=== PATIENT | female | born 1940 | race Caucasian/White ===

== ENCOUNTER → 2016-11-11 | Outpatient (CLI) | payer OTHER ==
[~2016-11-11] VITALS: Ht 170.2 cm; Wt 63.5 kg
[~2016-11-11] MED LIST: ACETAMINOPHEN325 M1 PO; ADULT LOW DOSE81 MG PO; ASPIRIN325 PO; BIOTIN5000 MCG PO; CALCIUM +D & M1 EAC1 PO; CENTRUM SILVER1 EAC4 PO; COZAAR 25 MG TA25 M1 PO; EVISTA PO; FISH OIL 1,2001 EAC3 PO; FLECAINIDE ACET50 M2 PO; LANOXIN 0.250.25 M1 PO; MYRBETRIQ50 MG PO; NORVASC2.5 MG PO; PRADAXA150 MG PO; PROPRANOLOL PO; TYLENOL P.M. E1 EAC3 PO; TYLENOL PM EX-1 EACH PO; XALATAN2.5 ML OP
[2016-11-11 11:54] LABS: CREATININE 0.8 mg/dL (0.6-1.0)
[2016-11-11 15:02] VITALS: BP 172/82
[2016-11-11 16:03] LABS: HEMATOCRIT 29.5 % (37.0-47.0); MCH 32.6 pg (26.0-34.0); MCHC 33.9 g/dL (28.0-37.0); MCV 96.2 fL (80.0-100.0); RBC 3.07 mil/uL (4.20-5.00); RDW 13.9 % (10.5-14.5); WBC 14.4 thou/uL (4.0-11.0)
[2016-11-11 16:08] LABS: CALCIUM 8.9 mg/dL (8.5-10.1); CREATININE 0.7 mg/dL (0.6-1.0); POTASSIUM 3.8 mmol/L (3.5-5.1)
[2016-11-11 16:40] LABS: APTT 33.9 Seconds (24.5-32.8); INR 1.1; PROTIME 11.4 Seconds (9.3-11.4)
[2016-11-11 18:20] VITALS: BP 157/86
[2016-11-11 19:30] VITALS: BP 151/77
== END | disposition home or self-care (01) ==
LOC: ULTRA 11:08 → CAT 11:08
PROVIDERS: Family Medicine; Radiology Vascular & Interventional Radiology
DX: I26.99 Other pulmonary embolism without acute cor pulmonale (principal)

== ENCOUNTER 2017-05-12 09:12 | Inpatient (IN) | payer OTHER ==
[~2017-05-12] VITALS: Ht 170.2 cm; Wt 62.6 kg
--- NOTE | ~2017-05-12 | HC ---
[facility] [place] [address] CONSULTATION Name: FREDDY DAVALOS Room #: 208-P [facility] IN M.R.#: [id number] Admission: 05/12/17 Attend Phys: Reynold Singh MD Discharge: Date of : 38 Report #: [id number] THIS REPORT FOR: //name// CC: Reynold Singh MD DATE OF SERVICE: 05/12/2017 TYPE OF REPORT: Cardiology consultation. HISTORY OF THE PRESENT ILLNESS: The patient is a 76-year-old single white female who was last seen in the hospital today because of shortness of breath. The patient has a long history of paroxysmal atrial fibrillation. She apparently has never required cardioversion. Previous stress testing showed no evidence of coronary artery disease. She has been on flecainide and digoxin. She has been chronically anticoagulated. She has been followed by Dr. Vasques in [place], [place]. She apparently had a stress test last year that showed no significant coronary artery disease. She has never had a heart catheterization. Apparently 6 months ago, she underwent a left knee replacement. She tolerated this well and 2 weeks ago, underwent a right knee replacement at the surgery center in [place]. She was discharged home. She is now ambulating with a walker. Recently, she has not felt very well. She has felt fatigued. Yesterday, she felt more short of breath. She felt some pressure in her chest, although there is no radiation into her arms. She denied any significant palpitations or syncope. She has had no bleeding. Because of her shortness of breath, she finally was driven by private vehicle to the Emergency Room here today and admitted. PAST MEDICAL HISTORY: Otherwise significant for bilateral mastectomy for breast cancer. She has a history of hypertension. MEDICATIONS: Consists of Evista; Pradaxa; digoxin; flecainide; amlodipine, which she has not been taking recently because of low blood pressure and losartan, which she also was not taken because of low blood pressure. ALLERGIES: She has no known drug allergies. FAMILY HISTORY: Brother had coronary artery bypass surgery. SOCIAL HISTORY: She is , lives in [place], [place]. No smoking or alcohol use. Her daughter is actually a nurse practitioner at [employer] in [place]. REVIEW OF SYSTEMS: She has had no history of stroke or asthma. She has had a peptic ulcer in the past. No kidney disease. No liver disease. No psychiatric illness. No chronic skin condition. [facility] [address] [place] [address] CONSULTATION Name: FREDDY DAVALOS Room #: 208-P [facility]#: [id number] Admission: 05/12/17 Attend Phys: Reynold Singh MD Discharge: Date of : 39 Report #: [id number] PHYSICAL EXAMINATION: GENERAL: Revealed an elderly female, lying in bed. She appeared in no distress. VITAL SIGNS: She had a blood pressure of 140/80, pulse is 70. She was afebrile. HEENT: She was anicteric. Conjunctivae pink. Mucous members appear dry. NECK: Veins do not appear distended. No carotid bruits. CHEST: Clear to auscultation. CARDIOVASCULAR: Regular rate and rhythm. Grade 2 systolic ejection murmur. ABDOMEN: Soft. EXTREMITIES: Had no edema. Dorsalis pedis pulse 1+ bilaterally. SKIN: Cool and dry. NEUROLOGICAL: Nonfocal. RADIOLOGICAL DATA: There is no 12-lead ECG noted with her chart at this time. However, on the monitor in the CCU, she appears to be in a sinus rhythm. Her workup in the Emergency Room, she had portable chest x-ray that showed normal heart size, apical scarring, breast prosthesis noted, appears to be an IVC filter in place. CT scan of the chest using a PE protocol showed the following findings: No pulmonary embolus, tortuous aorta, aortic root is 4.1 cm, lungs are clear, cardiomegaly, no dissection, no lymph nodes, cysts in the liver and breast prosthesis. LABORATORY DATA: Previous lab work from today, sodium 139, creatinine 0.8 and glucose 120. Troponin 0.04. BNP 169. White blood cell count 9.7, hemoglobin 11.2 and hematocrit 33.2. IMPRESSION AND RECOMMENDATIONS: 1. Shortness of breath. Reason unclear. No evidence of pulmonary edema, pulmonary embolus, pneumonia or congestive heart failure. Possibly related to anemia. 2. Previous pulmonary embolus. The patient has an inferior vena cava filter in place. 3. History of atrial fibrillation. The patient in sinus rhythm. Currently, on flecainide. 4. History of hypertension. The patient recently was taken off of losartan and amlodipine because of low blood pressure. 5. Previous history of breast cancer. 6. Recent knee surgery. <ELECTRONICALLY SIGNED> By: Dalton Ceja MD, FACC 05/13/17 1758 1814 0000 Dalton Ceja MD, FAC /nt
--- NOTE | ~2017-05-12 | HC ---
[facility] [place] [address] CONSULTATION Name: FREDDY DAVALOS Room #: 208-P ADM IN M.R.#: [id number] Admission: 05/12/17 Attend Phys: Reynold Singh MD Discharge: Date of : 39 Report #: [id number] THIS REPORT FOR: //name// CC: Reynold Vasques MD REFERRING PHYSICIAN: Reynold Singh M.D. REASON FOR REFERRAL: Dyspnea. HISTORY OF PRESENT ILLNESS: The patient is a 76-year-old white female who presents to Emergency Room with recent onset of dyspnea. A pulmonary consultation was requested. Few weeks ago, she underwent surgery. She was doing fairly well until about 3 days prior to presentation. She did slightly develop dyspnea on exertion. She did note palpitations. She was seen by Dr. Vasques for atrial fibrillation. With worsening dyspnea, she presents to Emergency Room. CT chest angiogram performed showed no evidence of pulmonary embolus. No other abnormalities were noted. The patient has an apparent history of pulmonary embolus 6 months ago. A filter was said to have been placed. She has chronic atrial fibrillation, on Pradaxa. Otherwise, denies any recent febrile illness, chest pain, productive cough, nausea, vomiting or diarrhea. PAST MEDICAL HISTORY: Chronic atrial fibrillation, on chronic anticoagulation and she is followed by Dr. Vasques; hypertension, history of breast cancer, right, status post mastectomy and left total knee replacement within the past year. PAST SURGICAL HISTORY: As mentioned above. ALLERGIES: None to medications. HOME MEDICATIONS: Include Evista, Tylenol, Pradaxa, digoxin, flecainide, iron and Norvasc. FAMILY HISTORY: Noncontributory. SOCIAL HISTORY: The patient is a lifetime nonsmoker. Denies alcohol use. REVIEW OF SYSTEMS: As mentioned above, otherwise 10-point system review negative. [facility] [address] [place] [address] CONSULTATION Name: FREDDY DAVALOS Room #: 208-P [facility] IN [facility]#: [id number] Admission: 05/12/17 Attend Phys: Reynold Singh MD Discharge: Date of : 39 Report #: [id number] PHYSICAL EXAMINATION: GENERAL: She is awake, alert, in no apparent distress. VITAL SIGNS: Temperature 98 degrees Fahrenheit, pulse is 55, respiratory rate is 18, blood pressure is 146/80 mmHg and saturation 98%. HEENT: Normocephalic and atraumatic. NECK: Supple, without any lymphadenopathy or thyromegaly. CHEST: Breath sounds are clear without any rales or wheezes. CARDIOVASCULAR: Normal S1 and S2. There is no murmurs or gallop. There is no JVD. There is no carotid bruit. Pulses are 2+/4+ bilaterally. ABDOMEN: Soft and nontender. No organomegaly or masses felt. GENITOURINARY: Deferred. RECTAL: Deferred. EXTREMITIES: There is no cyanosis, clubbing or edema. LABORATORY DATA: CT chest angiogram as mentioned above showing no evidence of pulmonary embolus. No infiltrates seen. BNP is normal is 169. Troponin is normal. RADIOLOGICAL DATA: Chest x-ray was unremarkable. EKG shows ST-depression in the lateral leads. IMPRESSION: 1. Dyspnea in this 76-year-old white female. She had a recent knee surgery a few weeks ago. CT chest shows no evidence of pulmonary embolus nor any infiltrates. She is on anticoagulant. The cause of the dyspnea is unclear but perhaps may be related to dysrhythmias given history of atrial fibrillation. Pulmonary embolus has been ruled out. The patient does not have a history of chronic obstructive lung disease. 2. Recent knee surgery a few weeks ago. 3. Remote history of pulmonary embolus approximately 6 months ago, apparent inferior vena cava filter placement. 4. Permanent atrial fibrillation, on chronic anticoagulation. 5. Hypertension. RECOMMENDATION: We will await Cardiology evaluation regarding abnormal EKG and dyspnea. If cardiac workup is deemed to be nondiagnostic, the patient will benefit from outpatient followup including pulmonary function test. In the meantime, if she is stable from cardiac standpoint, we will do an ambulatory oximetry study. So far saturation appears to be adequate, [place] [address] CONSULTATION Name: FREDDY DAVALOS SHANNON Room #: 208-P ADM IN M.R.#: [id number] Admission: 05/12/17 Attend Phys: Reynold Singh MD Discharge: Date of : 39 Report #: [id number] Thank you for this consultation. <ELECTRONICALLY SIGNED> By: Liam Argueta MD 05/13/17 1615 1800 [id number] Liam Argueta MD /nt
--- NOTE | ~2017-05-12 | 2DMMODE ---
[facility] [address] [place] [address] 2 D/M-MODE ECHOCARDIOGRAM Name: FREDDY DAVALOS Room #: 208-P ADM IN M.R.#: [id number] Admission: 05/12/17 Attend Phys: Reynold Singh, Discharge: Date of : 38 Date of Service: 05/13/17 1221 Report #: [id number] THIS REPORT FOR: //name// APPROVED REPORT Study performed: 05/13/2017 09:47:01 EXAM: Comprehensive 2D, Doppler, and color-flow Echocardiogram Patient Location: Bedside Room #: 208 Status: routine BSA: 1.70 HR: 67 bpm BP: 154/82 mmHg Other Information Study Quality: Adequate Indications Atrial Fibrillation Dyspnea Hypertension/HDD 2D Dimensions RVDd: 27.61 mm LVEF(%): 58.50 (>50%) IVSd: 10.16 (7-11mm) LVOT Diam: 21.77 (18-24mm) LVDd: 40.51 mm PWd: 10.31 (7-11mm) Ascending Ao: 34.42 (22-36mm) LVDs: 28.14 (25-40mm) Aortic Root: 36.81 mm IVC: 16.00 mm Parkinson's LVEF: 58.50 % Volumes Left Atrial Volume (Systole) Single Plane 4CH: 80.48 mL Single Plane 2CH: 57.59 mL LA ESV Index: 44.00 mL/m2 Aortic Valve AoV Peak Amrit.: 1.48 m/s AO Peak Gr.: 8.77 mmHg LVOT Max P.98 mmHg LVOT Max V: 1.12 m/s RANDI Vmax: 2.80 cm2 Mitral Valve E/A Ratio: 0.[address] [facility] [place] [address] [place] [address] 2 D/M-MODE ECHOCARDIOGRAM Name: FREDDY DAVALOS Room #: 208-P [facility] IN M.R.#: [id number] Admission: 05/12/17 Attend Phys: Reynold Singh, Discharge: Date of : 38 Date of Service: 05/13/17 1221 Report #: [id number] MVA Planimetry: 1842.23 mm2 MV Decel. Time: 351.67 ms MV E Max Amrit.: 0.96 m/s MV A Amrit.: 1.02 m/s MV PHT: 101.99 ms IVRT: 161.48 ms Pulmonary Valve PV Peak Amrit.: 1.10 m/s PV Peak Gr.: 4.88 mmHg Pulmonary Vein P Vein S: 0.59 m/s P Vein A: 0.25 m/s P Vein D: 0.44 m/s P Vein A Dur.: 110.7 msec P Vein S/D Ratio: 1.34 Tricuspid Valve TR Peak Amrit.: 2.66 m/s TR Peak Gr.: 28.20 mmHg PA Pressure: 33.00 mmHg Left Ventricle The left ventricle is normal size. There is normal left ventricular wall thickness. The left ventricular systolic function is normal. The left ventricular ejection fraction is within the normal range. LVEF is 55-60%. Grade I - abnormal relaxation pattern. Right Ventricle The right ventricle is normal size. The right ventricular systolic function is normal. Atria Left atrium is moderately dilated. Right atrium is mildly dilated. Aortic Valve Aortic valve is calcified. Trace aortic regurgitation. There is no aortic valvular stenosis. Mitral Valve The mitral valve is normal in structure. There is mitral annular calcification. Trace mitral regurgitation. No evidence of mitral valve stenosis. Tricuspid Valve The tricuspid valve is normal in structure. There is trace tricuspid regurgitation. Estimated PAP 33 mmHg. [facility] [address] [place] [address] 2 D/M-MODE ECHOCARDIOGRAM Name: FREDDY DAVALOS Room #: 208-P [facility] IN ..#: [id number] Admission: 05/12/17 Attend Phys: Reynold Singh, Discharge: Date of : 38 Date of Service: 05/13/17 1221 Report #: [id number] Pulmonic Valve Pulmonic valve is not well visualized. There is no pulmonic valvular regurgitation. Great Vessels The aortic root is normal in size. IVC is normal in size and collapses >50% with inspiration. Pericardium There is no pericardial effusion. <Conclusion> LVEF is 55-60%. Left atrium is moderately dilated. Right atrium is mildly dilated. Aortic valve is calcified. <ELECTRONICALLY SIGNED> By: Dalton Ceja MD, FACC 05/13/17 1221 1221 1221 Dalton Ceja MD, FACC /INF
--- NOTE | ~2017-05-12 | EKG ---
[address] [address] ELECTROCARDIOGRAM REPORT Name: FREDDY DAVALOS Room #: 170-22 ADM IN M.R.#: [id number] Admission: 05/12/17 Attend Phys: Reynold Singh MD Discharge: Date of : 39 Report #: [id number] THIS REPORT FOR: //name// [facility] ED Test Date: 2017-05-12 Test Time: 09:18:55 Pat Name: FREDDY DAVALOS Department: Room: 170 Gender: F Security Alarm Installer: ALONDRA : 1940 Requested By: Michael Livingston Order Number: [id number] MD: Leonardo Cedillo Measurements Intervals [place] Rate: 62 P: 82 ID: [id number] QRS: 69 QRSD: 94 T: 65 QT: 415 QTc: 422 Interpretive Statements Sinus rhythm ST depression, consider ischemia, lateral lds Compared to ECG 03/10/2011 08:44:26 ST (T wave) deviation now present Possible ischemia still present Electronically Signed On 05-12-2017 15:08:48 TECHNICAL SALES ASSOCIATE by Leonardo Cedillo [email or web address] <ELECTRONICALLY SIGNED> By: Leonardo Cedillo MD 05/12/17 1508 7 7 Leonardo Cedillo MD /EPI
--- NOTE | ~2017-05-12 | EKG ---
[address] [place] [address] ELECTROCARDIOGRAM REPORT Name: ANOOPFRDEDY SHANNON Room #: 208-P ADM IN M.R.#: [id number] Admission: 05/12/17 Attend Phys: Reynold Singh MD Discharge: Date of : 38 Report #: [id number] THIS REPORT FOR: //name// [facility] Test Date: 2017-05-13 Test Time: 06:21:18 Pat Name: FREDDY DAVALOS Department: Room: 208 P Gender: F Remelt Furnace Expediter: IBIS : 1940 Requested By: Liam Argueta Order Number: [id number] MD: Jaime Sarmiento Measurements Intervals [place] Rate: 62 P: 71 GA: 204 QRS: 36 QRSD: 98 T: 44 QT: 428 QTc: 435 Interpretive Statements Sinus rhythm Atrial premature complex Borderline low voltage, extremity leads Minimal ST depression, anterolateral leads Compared to ECG 05/12/2017 09:18:55 Atrial premature complex(es) now present Electronically Signed On 05-13-2017 8:22:02 OWNER OPERATOR by Jaime Sarmiento [email or web address] <ELECTRONICALLY SIGNED> By: Jaime Sarmiento MD, [facility] 05/13/17 0822 0 0 Jaime Sarmiento MD, [facility] /EPI
[2017-05-12 09:12] VITALS: BP 141/76
[2017-05-12 10:06] LABS: ABSOLUTE NEUTROPHILS 7.6 thou/uL (1.4-8.2); EOSINOPHILS 0.7 % (0.0-3.0); HEMATOCRIT 33.2 % (37.0-47.0); HEMOGLOBIN 11.2 gm/dL (12.0-15.0); LYMPHOCYTES 12.4 % (24.0-44.0); MCH 32.5 pg (26.0-34.0); MCHC 33.9 g/dL (28.0-37.0); MCV 96.1 fL (80.0-100.0); MONOCYTES 7.2 % (1.0-8.0); PLATELET COUNT 566 thou/uL (150-400); POLYS 78.7 % (36.0-66.0); RBC 3.46 mil/uL (4.20-5.00); RDW 13.9 % (10.5-14.5); WBC 9.7 thou/uL (4.0-11.0)
[2017-05-12] MEDS ORDERED: IRON325 PO (10:08)
[2017-05-12 10:16] LABS: ANION GAP 7 mmol/L (7-16); BUN 20 mg/dL (7-18); CALCIUM 9.6 mg/dL (8.5-10.1); CHLORIDE 103 mmol/L (98-107); CO2 29 mmol/L (21-32); CREATININE 0.8 mg/dL (0.6-1.0); GLUCOSE 120 mg/dL (74-106); SODIUM 139 mmol/L (136-145)
[2017-05-12 10:23] LABS: INR 1.2; PROTIME 12.2 Seconds (9.3-11.4)
[2017-05-12 10:24] LABS: TROPONIN-I < 0.04 ng/mL (<0.06)
[2017-05-12 13:33] VITALS: BP 146/80
[2017-05-12 13:37] VITALS: BP 146/80
[2017-05-12 14:26] VITALS: BP 146/80
[2017-05-12] MEDS ORDERED: RESTORIL15 MG PO (16:13)
[2017-05-12 20:00] VITALS: BP 145/78
[2017-05-13 04:05] LABS: ALBUMIN 2.9 g/dL (3.4-5.0); ANION GAP 5 mmol/L (7-16); BUN 18 mg/dL (7-18); CHLORIDE 106 mmol/L (98-107); CO2 29 mmol/L (21-32); CREATININE 0.9 mg/dL (0.6-1.0); DIGOXIN 0.8 ng/mL (0.9-2.0); GLUCOSE 92 mg/dL (74-106); SGOT 11 U/L (15-37); SGPT 14 U/L (30-65); SODIUM 140 mmol/L (136-145); TOTAL BILIRUBIN 0.3 mg/dL (<0.1-1.0); TOTAL PROTEIN 6.3 g/dL (6.4-8.2); TROPONIN-I < 0.04 ng/mL (<0.06)
[2017-05-13 04:25] VITALS: BP 154/82
[2017-05-13 07:53] VITALS: BP 150/83
[2017-05-13 11:35] VITALS: BP 150/77
[2017-05-13 15:00] VITALS: BP 118/66
[2017-05-13 20:28] VITALS: BP 140/62
[2017-05-13 20:50] LABS: URINE BILIRUBIN NEGATIVE (Negative); URINE BLOOD 1+ (Negative); URINE CLARITY CLEAR; URINE COLOR YELLOW; URINE GLUCOSE-RANDOM* NEGATIVE (Negative); URINE KETONES NEGATIVE (Negative); URINE PROTEIN (DIPSTICK) NEGATIVE (Negative); URINE UROBILINOGEN 0.2 E.U./dl (0.2-1.0)
[2017-05-13 20:51] LABS: URINE LEUKOCYTES-REFLEX 2+ (Negative); URINE NITRITE-REFLEX POSITIVE (Negative)
[2017-05-13 21:01] LABS: SQUAMOUS 0-3 Few /LPF (0-3); URINE RBC 3-10 Few /HPF (0-2); URINE WBC-REFLEX >25 Many /HPF (0-5)
[2017-05-13 21:02] LABS: BACTERIA-REFLEX >30 Many /HPF (None Seen); CASTS None Seen /LPF (None Seen); CRYSTALS None Seen /LPF (None Seen)
[2017-05-14 05:04] VITALS: BP 149/78
[2017-05-14 08:00] VITALS: BP 122/68
[2017-05-14 08:40] LABS: BE(vivo) 0.1 mmol/L (-2 to +3); PCO2 35.9 mmHg (35.0-45.0); PO2 82.7 mmHg (80.0-100.0); pH 7.443 (7.360-7.450); sO2 96.6 % (92.0-98.0)
[2017-05-14 11:00] VITALS: BP 149/70
[2017-05-14 11:02] VITALS: BP 152/84
[2017-05-14 11:04] VITALS: BP 124/79
[2017-05-14 15:44] VITALS: BP 124/79
== END 2017-05-14 17:20 | disposition home or self-care (01) | DRG 204 ==
LOC: ER 09:12 → 2N 11:53 → EROBS 11:53 → 2N 15:43 → ENTRNSPT 05-14 16:48 → 2N 05-14 17:20
PROVIDERS: Emergency Medicine; Internal Medicine Cardiovascular Disease; Internal Medicine Pulmonary Disease; Nurse Practitioner Family
DX: R06.00 Dyspnea, unspecified (principal); E43 Unspecified severe protein-calorie malnutrition; N39.0 Urinary tract infection, site not specified; I10 Essential (primary) hypertension; Z96.652 Presence of left artificial knee joint; F32.9 Major depressive disorder, single episode, unspecified; M85.80 Other specified disorders of bone density and structure, unspecified site; I48.0 Paroxysmal atrial fibrillation; Z68.21 Body mass index [BMI] 21.0-21.9, adult; Z85.3 Personal history of malignant neoplasm of breast; Z86.711 Personal history of pulmonary embolism; Z90.10 Acquired absence of unspecified breast and nipple; Z79.01 Long term (current) use of anticoagulants; Z82.49 Family history of ischemic heart disease and other diseases of the circulatory system; Z95.828 Presence of other vascular implants and grafts
CPT/HCPCS: 10194

== ENCOUNTER → 2018-04-08 | Outpatient (CLI) | payer OTHER ==
[~2018-04-08] MED LIST changes: +IRON325 PO; +RESTORIL15 MG PO
[2018-04-08 11:03] LABS: HEMATOCRIT 36.5 % (37.0-47.0); HEMOGLOBIN 12.4 gm/dL (12.0-15.0); MCH 33.3 pg (26.0-34.0); MCV 97.9 fL (80.0-100.0); RBC 3.72 mil/uL (4.20-5.00); RDW 13.3 % (10.5-14.5); WBC 7.5 thou/uL (4.0-11.0)
[2018-04-08 11:17] LABS: PROTIME 10.3 Seconds (9.3-11.4)
[2018-04-08 11:19] LABS: CALCIUM 9.6 mg/dL (8.5-10.1); POTASSIUM 4.5 mmol/L (3.5-5.1)
== END | disposition home or self-care (01) ==
LOC: SPEC 09:07
PROVIDERS: Radiology Vascular & Interventional Radiology
DX: Z45.89 Encounter for adjustment and management of other implanted devices (principal); Z86.711 Personal history of pulmonary embolism; I48.91 Unspecified atrial fibrillation; I10 Essential (primary) hypertension; M81.0 Age-related osteoporosis without current pathological fracture; Z79.899 Other long term (current) drug therapy; Z98.890 Other specified postprocedural states; Z96.652 Presence of left artificial knee joint; Z85.3 Personal history of malignant neoplasm of breast

== ENCOUNTER → 2019-04-12 | Outpatient (CLI) | payer OTHER | LOC: NUC 04-01 13:01 | DX: M81.0 Age-related osteoporosis without current pathological fracture (principal); M85.89 Other specified disorders of bone density and structure, multiple sites; Z78.0 Asymptomatic menopausal state ==